=== PATIENT | male | born 1965 | race Caucasian/White ===

== ENCOUNTER 2017-03-10 15:07 | Emergency (ER) | payer MEDICAID, OTHER ==
[~2017-03-10] VITALS: Wt 97.5 kg
--- NOTE | 2017-03-10 16:44 | RADRPT ---
PROCEDURE: XR Chest. CLINICAL INDICATION: Left Rib pain. Fall. TECHNIQUE: Single PA chest COMPARISON: None. FINDINGS: The cardiomediastinal silhouette is within normal limits of size . Atherosclerotic calcification of the aorta.The lungs are clear without pleural effusion or focal consolidation. No pneumothorax. The osseous structures and soft tissues are unremarkable. IMPRESSION: 1. No evidence for active cardiopulmonary disease. A dedicated rib series may be considered for furt her evaluation of the left ribs. RPTAT:AAJJ Hilario mAes Physician Date Time Electronically viewed and signed by Physician Greg on 03/10/2017 16:44 THAD/
[2017-03-10] MEDS ORDERED: HYDROCODONE/APAP (10/325) TAB PO ONE (17:00)
--- NOTE | 2017-03-10 17:10 | RADRPT ---
PROCEDURE: XR left ribs . CLINICAL INDICATION: rib pain s/p slip and fall TECHNIQUE: AP and oblique views of the left ribs were obtained. COMPARISON: No. FINDINGS: The soft tissues and bony elements are normal. No pneumothorax or rib fractures identified. No pleu ral effusion is noted. The heart is normal in size. Cone down views of the lower ribs are not obta ined and represent a limitation of the study. IMPRESSION: Normal left rib series. RPTAT:AAJJ Physician Caroline Date Time Electronically viewed and signed by Tom Salas Physician on 03/10/2017 17:10 NEW/
--- NOTE | 2017-03-10 17:13 | RADRPT ---
PROCEDURE: XR Lumbar Spine. CLINICAL INDICATION: back pain s/p slip and fall TECHNIQUE: AP, lateral and cone-down lateral view of the lumbar spine were obtained. COMPARISON: No prior studies are available for comparison. FINDINGS: There are degenerative changes of the lower thoracic spine. There are degenerative osteophytes in t he upper lumbar and mid lumbar vertebra. There is a rounded calcific a 1.7 cm round calcific densit y is associated with or overlaps the L1 right transverse process. The appearance is benign. A CT s can could be performed for further characterization if needed. Differential considerations include an old fracture deformity, rudimentary rib, benign bone tumor or superimposed intra-abdominal calcif ication. IMPRESSION: 1. There are 6 lumbar vertebra. 2. Osteoarthritis of the lumbar spine. 3. No evidence of an acute bony fracture. 4. Idiopathic 1.7 cm rounded calcific configuration associated with the right first rib. The appea lisa is benign. RPTAT:AAJJ Physician Caroline Date Time Electronically viewed and signed by Physician Caroline on 03/10/2017 17:13 NEW/
[2017-03-10] MEDS ORDERED: HYDR-902 PO (17:33)
[2017-03-10] MEDS ORDERED: IBUP-1542 PO (17:33)
--- NOTE | 2017-03-10 22:47 | ERD ---
ER Documentation Chief Complaint Date/Time DATE: 03/10/17 TIME: 22:31 Chief Complaint LEFT MID BACK PAIN S/P GLF, NO KO HPI Patient is a 51 year old male who presents to the emergency department with LBP and left sided rib pain s/p slip and fall injury while in the shower earlier today. Patient reports bruising to left rib cage. Patient states that he slipped and hit his left rib cage on the bathtub. Patient also reports lower back pain. Patient denies any radiation of pain down his legs. Pain is worse with movement, especially when standing up for a chair. Patient denies any dizziness, nausea or presyncopal episodes prior to fall injury. Patient denies hitting his head. Patient denies any saddle anesthesia, urinary incontinence, stool incontinence, fever, chills, chest pain, shortness of breath. ROS All systems reviewed and are negative except as per history of present illness. Medications Home Meds Active Scripts Hydrocodone/Acetaminophen (Oldwick 10-325 Tablet) 1 Each Tablet, 1 TAB PO Q6H Y for PAIN, #10 TAB Prov:HAY EPPERSON PA-C 03/10/17 Ibuprofen* (Motrin*) 600 Mg Tab, 600 MG PO Q6, #30 TAB Prov:HAY EPPERSON PA-C 03/10/17 Reported Medications [None] No Conflict Check 05/17/10 Allergies Allergies: Coded Allergies: No Known Allergies (Verified Allergy, Mild, 05/17/10) PMhx/Soc History of Surgery: Yes (FACIAL SURGERY - 15 YRS AGO) Anesthesia Reaction: No Hx Neurological Disorder: Yes (DIZZINESS) Hx Respiratory Disorders: No Hx Cardiac Disorders: No Hx Psychiatric Problems: No Hx Miscellaneous Medical Probl: No Hx Alcohol Use: Yes Hx Substance Use: No Hx Tobacco Use: No Physical Exam Vitals Vital Signs Date Time Temp Pulse Resp B/P Pulse Ox O2 Delivery O2 Flow Rate FiO2 03/10/17 15:09 99.0 94 18 140/90 99 Physical Exam GENERAL: Well-developed, well-nourished male. Appears in no acute distress. HEAD: Normocephalic, atraumatic. EYES: Pupils are equally reactive bilaterally. EOMs grossly intact. No conjunctival erythema. ENT: Moist mucous membranes. No uvula deviation. No kissing tonsils. NECK: Supple. No lymphadenopathy or thyromegaly. No meningismus. No cervical midline tenderness. LUNG: Clear to auscultation bilaterally. No rhonchi, wheezing, rales or coarse breath sounds. RIBS: Superficial abrasion and ecchymosis noted to left mid rib cage. + Tenderness to palpation. HEART: Regular rate and rhythm. No murmurs, rubs or gallops. BACK: No midline tenderness. Tender to palpation of bilateral paraspinalis muscles of lumbar region. Extremities: Equal pulses bilaterally. No peripheral clubbing, cyanosis or edema. No unilateral leg swelling. NEUROLOGIC: Alert and oriented. Moving all four extremities. 5/5 strength in all extremities. Normal speech. Steady gait. SKIN: Normal color. Warm and dry. No rashes or lesions. Results 24 hrs Current Medications Medications (Trade) Dose Ordered Sig/Randell Route PRN Reason Start Time Stop Time Status Last Admin Dose Admin Acetaminophen/ Hydrocodone Bitart (Oldwick ()) 1 tab ONCE ONCE PO 03/10/17 17:00 03/10/17 17:01 DC 03/10/17 17:08 Procedures/MDM ED COURSE: The patient was stable throughout ED course. I kept the patient and/or family informed of laboratory and diagnostic imaging results throughout the ED course. DIAGNOSTIC IMAGING: Read by radiologist. DIAGNOSTIC IMAGING REPORT Patient: NESS LARRY : 1965 Age: 51 Sex: M MR #: [id number] DOS: 03/10/17 1539 Ordering MD: HAY EPPERSON PA-C Location: [facility] Room/Bed: PROCEDURE: XR Chest. CLINICAL INDICATION: Left Rib pain. Fall. TECHNIQUE: Single PA chest COMPARISON: None. FINDINGS: The cardiomediastinal silhouette is within normal limits of size . Atherosclerotic calcification of the aorta.The lungs are clear without pleural effusion or focal consolidation. No pneumothorax. The osseous structures and soft tissues are unremarkable. IMPRESSION: 1. No evidence for active cardiopulmonary disease. A dedicated rib series may be considered for further evaluation of the left ribs. RPTAT:AAJJ Hilario Ames Physician Date Time Electronically viewed and signed by Physician Greg on 03/10/2017 16:44 THAD/ CC: HAY EPPERSON PA-C Patient: NESS LARRY : 1965 Age: 51 Sex: M MR #: [id number] DOS: 03/10/17 1539 Ordering MD: HAY EPPERSON PA-C Location: [facility] Room/Bed: PROCEDURE: XR Lumbar Spine. CLINICAL INDICATION: back pain s/p slip and fall TECHNIQUE: AP, lateral and cone-down lateral view of the lumbar spine were obtained. COMPARISON: No prior studies are available for comparison. FINDINGS: There are degenerative changes of the lower thoracic spine. There are degenerative osteophytes in the upper lumbar and mid lumbar vertebra. There is a rounded calcific a 1.7 cm round calcific density is associated with or overlaps the L1 right transverse process. The appearance is benign. A CT scan could be performed for further characterization if needed. Differential considerations include an old fracture deformity, rudimentary rib, benign bone tumor or superimposed intra-abdominal calcification. IMPRESSION: 1. There are 6 lumbar vertebra. 2. Osteoarthritis of the lumbar spine. 3. No evidence of an acute bony fracture. 4. Idiopathic 1.7 cm rounded calcific configuration associated with the right first rib. The appearance is benign. RPTAT:AAJJ Physician Caroline Date Time Electronically viewed and signed by Physician Caroline on 03/10/2017 17:13 JM/ CC: HAY EPPERSON PA-C DIAGNOSTIC IMAGING REPORT Patient: NESS LARRY : 1965 Age: 51 Sex: M MR #: [id number] DOS: 03/10/17 1539 Ordering MD: HAY EPPERSON PA-C Location: [facility] Room/Bed: PROCEDURE: XR left ribs . CLINICAL INDICATION: rib pain s/p slip and fall TECHNIQUE: AP and oblique views of the left ribs were obtained. COMPARISON: No. FINDINGS: The soft tissues and bony elements are normal. No pneumothorax or rib fractures identified. No pleural effusion is noted. The heart is normal in size. Cone down views of the lower ribs are not obtained and represent a limitation of the study. IMPRESSION: Normal left rib series. RPTAT:AAJJ Physician Caroline Date Time Electronically viewed and signed by Tom Salas Physician on 03/10/2017 17:10 JM/ CC: HAY EPPERSON PA-C MEDICATIONS GIVEN: Oldwick Patient tolerated medication well with no adverse reactions. Patient reported improvement in pain. MEDICAL DECISION MAKING: This is a 51 year old male with left rib pain and lower back pain after slip and fall injury while in the shower earlier today. Patient denied head injury or presyncopal episode. Vital signs were reviewed. Patient was afebrile. Patient denied any saddle anesthesia, urinary incontinence, bowel incontinence, night pain or recent trauma. CXR was unremarkable. Left rib series was unremarkable. Lumbar xray showed there are 6 lumbar vertebra. Osteoarthritis of the lumbar spine. No evidence of an acute bony fracture. Given these findings, the patients presentation is most consistent with rib contusion and lumbar strain. I have a much lower clinical concern for rib fracture, pneumothorax, cauda equine syndrome, spinal fractures, epidural abscess, spinal metastases, osteomyelitis, aortic dissection, sciatica, pyelonephritis or nephrolithiasis. PRESCRIPTIONS: Ibuprofen [place]wick DISCHARGE: At this time, patient is stable for discharge and outpatient management. RICE therapy and ROM exercises were advised to avoid stiffness. I have instructed the patient to follow-up with his/her primary care physician in 1-2 days. I have discussed with the patient the possibility of needing to see an cleaning specialist for further workup and imaging if the pain persists. I have instructed the patient to promptly return to the ER for any new or worsening symptoms including increased pain, swelling, warmth, urinary incontinence, stool incontinence, weakness or numbness. The patient and/or family expressed understanding of and agreement with this plan. All questions were answered. Home care instructions were provided. Departure Diagnosis: Primary Impression: Rib pain on left side Additional Impression: Back pain Back pain location: low back pain Chronicity: unspecified Back pain laterality: unspecified Sciatica presence: without sciatica Qualified Code: M54.5 - Low back pain without sciatica, unspecified back pain laterality, unspecified chronicity Condition: Stable Patient Instructions: Back Pain (Acute Or Chronic), Rib Contusion Referrals: [facility], [facility] YOU HAVE RECEIVED A MEDICAL SCREENING EXAM AND THE RESULTS INDICATE THAT YOU DO NOT HAVE A CONDITION THAT REQUIRES URGENT TREATMENT IN THE EMERGENCY DEPARTMENT. FURTHER EVALUATION AND TREATMENT OF YOUR CONDITION CAN WAIT UNTIL YOU ARE SEEN IN YOUR DOCTORS OFFICE WITHIN THE NEXT 1-2 DAYS. IT IS YOUR RESPONSIBILITY TO MAKE AN APPOINTMENT FOR FOLOW-UP CARE. IF YOU HAVE A PRIMARY DOCTOR --you should call your primary doctor and schedule an appointment IF YOU DO NOT HAVE A PRIMARY DOCTOR YOU CAN CALL OUR PHYSICIAN REFERRAL HOTLINE AT IF YOU CAN NOT AFFORD TO SEE A PHYSICIAN YOU CAN CHOSE FROM THE FOLLOWING [facility] [address] [facility]. [facility] [address] [facility]. [facility] [address] [facility] [facility] [address] [place]. [facility] [address] [facility]. [facility]. [address] [facility] YOU HAVE RECEIVED A MEDICAL SCREENING EXAM AND THE RESULTS INDICATE THAT YOU DO NOT HAVE A CONDITION THAT REQUIRES URGENT TREATMENT IN THE EMERGENCY DEPARTMENT. FURTHER EVALUATION AND TREATMENT OF YOUR CONDITION CAN WAIT UNTIL YOU ARE SEEN IN YOUR DOCTORS OFFICE WITHIN THE NEXT 1-2 DAYS. IT IS YOUR RESPONSIBILITY TO MAKE AN APPOINTMENT FOR FOLOW-UP CARE. IF YOU HAVE A PRIMARY DOCTOR --you should call your primary doctor and schedule and appointment IF YOU DO NOT HAVE A PRIMARY DOCTOR YOU CAN CALL OUR PHYSICIAN REFERRAL HOTLINE AT . IF YOU CAN NOT AFFORD TO SEE A PHYSICIAN YOU CAN CHOSE FROM THE FOLLOWING ON LICENSE OF [facility] INSTITUTIONS: [facility] [address] [place] [address] [facility] [address] [place] [address] [facility] [address] [place] [address] [facility] Hours: Mon-Fri 9:00 AM - 5:00 PM Additional Instructions: Llame al doctor MAANA y bhavya graham EBONIE PARA DENTRO DE 1-2 MUÑIZ.Dgale a la secretaria que nosotros le instruimos hacer esta ebonie.Avise o llame si white condicin se empeora antes de la ebonie. Regresa aqui si peor o no mejor. HAY EPPERSON PA-C March 10, 2017 22:46
== END 2017-03-10 17:45 | disposition home or self-care (01) ==
LOC: FTE 15:07
DX: R07.81 Pleurodynia (principal)
CPT/HCPCS: 71010; 71100; 72100; Z7610

== ENCOUNTER 2018-03-26 14:26 | Inpatient (IN) | END 2018-03-28 12:47 | disposition home or self-care (01) | DRG 433 ==

== ENCOUNTER 2018-06-18 16:50 | Inpatient (IN) | END 2018-07-11 11:30 | disposition home or self-care (01) | DRG 432 ==